=== PATIENT | male | born 1930 | race Caucasian/White ===

== ENCOUNTER 2016-09-01 12:24 | Emergency (ER) | payer MEDICARE, OTHER ==
[2016-09-01] MEDS ORDERED: ACETAMINOPHEN 500 MG TABLET ONE (14:14)
--- NOTE | 2016-09-01 14:32 | RAD ---
RIGHT KNEE 4 VIEWS HISTORY: Status post fall with right knee pain. Frontal, lateral, and bilateral oblique views of the right knee. COMPARISON: 11/25/2015 POSTPROCEDURAL CHANGE: Status post right knee arthroplasty. No periprosthetic lucency noted. ALIGNMENT: Grossly unremarkable.. JOINT EFFUSION: Interval development of moderate effusion. CALCIFICATIONS: Moderate vascular calcifications. FRACTURE: No displaced acute fracture. IMPRESSION: Post arthroplasty change without displaced acute fracture or periprosthetic lucency. Moderate joint effusion.
== END 2016-09-01 15:06 | disposition home or self-care (01) ==
LOC: ED 12:24
DX: S80.01XA Contusion of right knee, initial encounter (principal); I10 Essential (primary) hypertension; Z85.51 Personal history of malignant neoplasm of bladder; W19.XXXA Unspecified fall, initial encounter
CPT/HCPCS: 73564; 99283 ×2; A9270